=== PATIENT | female | born 1955 | race Caucasian/White ===

== ENCOUNTER 2016-12-04 06:12 | Inpatient (IN) ==
[2016-12-04] MEDS ORDERED: Lidocaine -MPF 1% 2 ML VIAL ID ONE (06:40)
[2016-12-04] MEDS ORDERED: Vancomycin 750 MG in D5% in Water 250 ML IVPB ONE (06:40)
[2016-12-04] MEDS ORDERED: CeFAZolin Pre 2,000 MG/100 ML 2,000 MG/100 ML BAG IVPB ONE (06:40)
[2016-12-04] MEDS ORDERED: Albuterol 2.5 MG/3 ML NEBULIZER IH ONE (06:42)
[2016-12-04] MEDS ORDERED: Ringers Solution, Lactated 1,000 ML IVC SCH (06:45)
[2016-12-04] MEDS ORDERED: *HR* Succinylcholine 200 MG/10 ML VIAL IVP ONE (06:58)
[2016-12-04] MEDS ORDERED: *HR* Propofol 200 MG/20 ML VIAL IVP ONE (06:58)
[2016-12-04] MEDS ORDERED: *HR* Midazolam HCl 2 MG/2 ML VIAL ONE (06:58)
[2016-12-04] MEDS ORDERED: Dexamethasone 4 MG/ML VIAL ONE (06:58)
[2016-12-04] MEDS ORDERED: *HR* FentaNYL (PF) 100 MCG/2 ML VIAL ONE (06:58)
[2016-12-04] MEDS ORDERED: *HR* Rocuronium Bromide 50 MG/5 ML VIAL ONE (06:58)
[2016-12-04] MEDS ORDERED: Lidocaine -MPF 2% 2 ML VIAL ONE (06:58)
[2016-12-04] MEDS ORDERED: *HR* Phenylephrine 10 MG/ML VIAL ONE (06:58)
[2016-12-04] MEDS ORDERED: Ondansetron 4 MG/2 ML VIAL ONE (06:58)
[2016-12-04] MEDS ORDERED: EPHEDrine 50 MG/ML VIAL ONE (06:58)
[2016-12-04] MEDS ORDERED: Lidocaine -MPF 4% 5 ML AMPUL ONE (06:58)
--- NOTE | 2016-12-04 07:01 | Anesthesia Evaluation PreOp ---
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: Denies Any Significant HX Other Medical History: Denies Any Significant HX Anesthesia History: No Prior Anesthetic Complications, Past Anesthesia (c/s) Alcohol Use: heavy Drug use: none Medications and Allergies Clopidogrel Bisulfate [Plavix] 75 mg PO DAILY #30 tablet 11/28/16 [Rx] Ibuprofen/Diphenhydramine Cit [Advil Pm Caplet] 1 each PO HS 11/28/16 [History] Losartan Potassium [Cozaar] 75 mg PO DAILY 11/28/16 [History] Pravastatin Sodium [Pravachol] 10 mg PO HS 11/28/16 [History] Tramadol HCl [Ultram] 50 mg PO TID PRN 11/28/16 [History] Allergies No Known Allergies Allergy (Verified 11/28/16 06:40) - Meds/Allergy Pre-op Review Medications Reviewed: Yes Allergies Reviewed: Yes Beta Blockers on Current Med List: No Anesthesia Results - Labs Laboratory Tests 11/27/16 11/27/16 11/28/16 08:38 08:38 06:56 Hgb 14.3 Hct 40.8 Plt Count 266 PT 11.8 INR 1.1 APTT 39.6 H Sodium 128 L Potassium 2.9 L Creatinine 0.70 - Imaging EKG: report reviewed (st, lad) Anesthesia Exam O2 Sat Height 1.63 m Height 1.63 m Height 1.63 m Weight 54.431 kg Weight 54.431 kg Weight 54.431 kg O2 Sat by Pulse Oximetry 97 Vital Signs Temp Pulse Resp BP Pulse Ox 97.6 F 102 18 139/77 97 12/04/16 06:38 12/04/16 06:38 12/04/16 06:38 12/04/16 06:38 12/04/16 06:38 Height: 1.63 Weight: 54 NPO (# of Hours): >8 - HEENT Pupil (Motor): Pupils equal, EOMI Mallampati: III Teeth: Poor dentition Oral Opening: Less than or equal to 3 (poor underbite) - NURSE ADVOCATE LOC: Oriented NURSE ADVOCATE Motor: Normal RUE, Normal LUE, Normal RLE, Normal LLE, Normal Face NURSE ADVOCATE Sensory: Normal: RUE, LUE, RLE, LLE, Face - Cardiac Rhythm: Regular Murmur: None - Pulmonary Breath Sounds: bilateral Clear (distant bilat) Anesthesia Assess/Plan ASA Score: 3 Modified Thurmond Scale for Level of Consciousness: Cooperative, oriented, and tranquil Anesthetic Plan: General (take SUSU in OR for anticipated diff AW) Monitoring Plan: Standard Monitors Recovery Plan: PACU
[2016-12-04] MEDS ORDERED: Heparin 1,000 UNITS/500 mL NS 0 ML ONE (07:07)
[2016-12-04] MEDS ORDERED: Heparin 1,000 UNITS/500 mL NS 500 ML ONE (07:16)
[2016-12-04] MEDS ORDERED: Vancomycin 1,000 MG VIAL ONE (07:16)
--- NOTE | 2016-12-04 07:30 | History & Physical Report ---
Date of Encounter: 12/04/16 Time of Encounter: 07:28 24 Hour HP Update - Instructions Instructions: If the History and Physical is less than 30 days old and was completed prior to A.M. admission and or procedure and has NOT been updated on calendar day of procedure please complete this update prior to performing procedure. - Update Patient reports changes in Medical Condition: No Changes in examination, assessment, or condition: No Changes in Medication: No Preop tests/diagnostics Reviewed: Yes Surgery Remains Indicated: Yes Consent for Planned Operative Procedure(s) Verified: Yes - Pre-Operative Checklist Preoperative Checklist Indicated: No Prophylactic Antibiotic Ordered: Yes (Vancomycin due to MRSA risk) Home Medications Include Beta Stu: No Beta Stu Taken Today (Day of Surgery): No Beta Stu Taken Yesterday (Day Prior to Surgery): No Is VTE Prophylaxis Indicated?: Yes
[2016-12-04] MEDS ORDERED: Lacri-Lube 3.5 GM TUBE ONE (08:32)
[2016-12-04] MEDS ORDERED: *HR* Heparin 5,000 UNIT/ML VIAL ONE ×2 (09:16→09:51)
[2016-12-04] MEDS ORDERED: *HR* HYDROmorphone (PF) 1 MG/ML SYRINGE IVP PRN (09:30)
[2016-12-04] MEDS ORDERED: *HR* Labetalol 20 MG/4 ML SYRINGE IVP PRN ×2 (09:30→11:51)
[2016-12-04] MEDS ORDERED: Ondansetron 4 MG/2 ML VIAL IVP ONE (09:30)
[2016-12-04] MEDS ORDERED: *HR* Promethazine 25 MG/ML VIAL IVP PRN (09:30)
[2016-12-04] MEDS ORDERED: *HR* HYDROmorphone 2 MG/ML SYRINGE ONE (10:10)
[2016-12-04] MEDS ORDERED: *HR* Metoprolol 5 MG/5 ML VIAL IVP ONE (10:11)
--- NOTE | 2016-12-04 11:00 | Operative Note ---
Date of procedure: 12/04/16 Pre-op diagnosis: Peripheral vascular disease with ulceration Post-op diagnosis: same Procedure: 1. Right femoral to above knee popliteal artery bypass with 6mm Dist[place]flo [place] PTFE graft. 2. Right common and deep femoral artery endarterectomy. 3. Right popliteal artery endarterectomy. Complications: None Anesthesia: JIMBO Surgeon: Cecilio Ellis Estimated blood loss (cc): 100 Specimen: Right lower extremity plaque, right groin lymph node Condition: stable Disposition: PACU Procedure in Detail: Indications: The patient is a 61 year old female who presented to clinic with peripheral vascular disease with ulceration. She underwent an angiogram was was found to have iliac disease, femoral disease and a right superficail femoral artery occlusion. She previously underwent iliac stent placement. She had persistent rest pain and ulcerations and is here today for revascularization. Procedure: The patient was identified in the preoperative area. The risks, benefits, and alternatives of the procedure were discussed. All questions were answered. The patient was taken to the operating room and placed in supine position on the operating room table. After the induction of general endotracheal anesthesia, he was cleaned and draped in normal sterile fashion. An oblique incision was made over the right groin sharply. Hemostasis was obtained with electrocautery. Through a process of blunt, sharp, and electrocautery dissection, the right femoral vessels were dissected circumferentially and surrounded with vessel loops. An incision was made on the right medial distal thigh sharply. Hemostasis was obtained with electrocautery. Through a process of blunt, sharp, and electrocautery dissection, the right above-knee popliteal artery was dissected proximally and distally and surrounded with vessel loops. A graft was tunneled between the popliteal and femoral incisions. The patient received 5000 units of heparin intravenously. Additional heparin was given throughout the case to maintain adequate anticoagulation. The popliteal vessels were occluded and a longitudinal arteriotomy was made in the popliteal artery. A partially occlusive plaque was excised from the popliteal artery with a dental freer. The distal end of the graft was then sutured in place with a running 6-0 Prolene , but not tied. Heparinized saline was infused into the lumen. Tension was applied to the femoral vessel loops. An arteriotomy was made in the common femoral artery and a nearly occlusive plaque was noted at the distal common femoral artery. This plaque extended into the superficial femoral artery which was chronically occluded and also obstructed the right deep femoral artery. Release of the deep femoral vessel loop revealed only minimal retrograde flow. Using a dental freer, an endarterectomy was performed on the distal common femoral artery and deep femoral artery. The plaque was excised and sent to pathology. After the endarterectomy significant improvement in retrograde flow from the deep femoral artery was noted. The proximal ed of the graft graft was cut to fit the defect. The graft was anastamosed with a running 6-0 Prolene. The vessels were flushed through the graft and heparin was infused into the lumen. The graft was clamped with an atraumatic clamp. Thrombin and gelfoam were used at the proximal anastamosis. The distal arterial anastomosis was completed and prior to completing the closure, the popliteal vessels were flushed and reoccluded. Heparinized saline was infused into the lumen. The anastamosis was tied and then flow was restored. Polyphasic signals were noted distal to the distal anastomosis as well as at the posterior tibial artery. Wounds were irrigated with antibiotic-containing saline. Thrombin and gelfoam were used to aid in hemostasis. Platelet rich and platelet poor plasma were infused into the wounds. Meticulous hemostasis was obtained throughout the wound with electrocautery. Wounds were reapproximated with layers of 2-0 and 3-0 Vicryl. Skin was reapproximated with 3-0 Monocryl. Sterile dressing was applied. The patient was extubated and taken to recovery room in stable condition.
--- NOTE | 2016-12-04 11:43 | Anesthesia Evaluation Post Op ---
Date of Encounter: 12/04/16 Time of Encounter: 11:40 - Vital Signs Vital Signs: Last Vital Signs Temp 97.0 F L 12/04/16 11:31 Pulse 71 12/04/16 11:31 Resp 18 12/04/16 11:31 BP 135/68 12/04/16 11:31 Pulse Ox 100 12/04/16 11:31 - Lungs Lungs: Clear Ascult./Percussion - Airway Airway: Non-obstructed - Cardiovascular Regular Rate - Mental Status Mental Status: Alert & Oriented, Answers Appropriately - Pain Pain Scale: 0 Pain Scale used: Numeric (1 - 10) - Nausea Vomiting Nausea Vomiting: Not Present - Hydration Hydration: Ice chips, Judge catheter - Discharge PostOp Status: Transfer Patient to floor Attestation: Patient alert and communicative. Meets criteria for floor transfer.
[2016-12-04] MEDS ORDERED: *HR* Morphine 2 MG/ML SYRINGE IVP PRN (11:51)
[2016-12-04] MEDS ORDERED: Naloxone 0.4 MG/ML INJ IVP PRN (11:51)
[2016-12-04] MEDS ORDERED: *HR* OxyCODONE Immed Rel 5 MG TABLET PO PRN (11:51)
[2016-12-04] MEDS ORDERED: Acetaminophen 325 MG TABLET PO PRN (11:51)
[2016-12-04] MEDS ORDERED: Ondansetron 4 MG/2 ML VIAL IVP PRN (11:51)
[2016-12-04] MEDS: *HR* HYDROcodone/Acet 5/325 mg TABLET PO PRN ×2 (12:07→17:57)
[2016-12-04] MEDS ORDERED: 0.9 % Sodium Chloride 1,000 ML IVC ONE (13:18)
[2016-12-04] MEDS: *HR* Metoprolol 5 MG/5 ML VIAL IVP SCH ×3 (13:20→23:45)
[2016-12-04] MEDS: 0.9 % Sodium Chloride 1,000 ML IVC SCH (16:33)
[2016-12-04 17:12] LABS: Basophils % 0.2 %; Eosinophils % 0.2 %; Hematocrit 27.5 % (35.3-44.9); Hemoglobin 9.5 g/dL (11.5-15.4); Immature Granulocytes % 0.8 % (0-4); Lymphocytes # 0.7 K/mcL (0.6-4.6); Lymphocytes % 6.1 %; Mean Corpuscular HGB Conc 34.5 g/dL (31.6-35.5); Mean Corpuscular Volume 95.5 fL (83.0-100.0); Mean Platelet Volume 9.8 fL (9.4-12.4); Monocytes # 0.3 K/mcL (0.0-1.3); Monocytes % 2.7 %; Neutrophils # 10.1 K/mcL (1.6-8.9); Platelet Count 392 K/mcL (140-400); Red Blood Count 2.88 M/mcL (3.82-4.97); Red Cell Distribution Width 11.9 % (11.5-14.5)
[2016-12-04 17:24] LABS: BUN/Creatinine Ratio 12 (6-26); Blood Urea Nitrogen 8 mg/dL (7-20); Carbon Dioxide 25 mEq/L (19-29); Chloride 96 mEq/L (98-109); Glucose 150 mg/dL (70-99); Osmolality,Calculated 269 (280-300); Potassium 4.1 mEq/L (3.5-4.5); Sodium 129 mEq/L (136-145); eGFR For African Americans > 60 (> 60); eGFR For Non-African Americans > 60 (> 60)
[2016-12-04] MEDS: ceFAZolin 2,000 MG in D5% in Water 100 ML IVPB SCH ×2 (17:52→23:43)
[2016-12-04] MEDS ORDERED: Magnesium Sulfate 2 GM in D5% in Water 100 ML IVPB ONE (18:23)
[2016-12-04] MEDS ORDERED: Vancomycin 1,000 MG in D5% in Water 250 ML IVPB ONE ×2 (18:30→19:15)
[2016-12-05] MEDS: *HR* Metoprolol 5 MG/5 ML VIAL IVP SCH (05:25)
[2016-12-05] MEDS ORDERED: *HR* Heparin 5,000 UNIT/ML VIAL SQ SCH ×2 (06:00)
[2016-12-05 06:04] LABS: Basophils % 0.1 %; Hematocrit 23.2 % (35.3-44.9); Hemoglobin 8.2 g/dL (11.5-15.4); Immature Granulocytes % 0.9 % (0-4); Lymphocytes # 1.3 K/mcL (0.6-4.6); Lymphocytes % 9.3 %; Mean Corpuscular HGB Conc 35.3 g/dL (31.6-35.5); Mean Corpuscular Hemoglobin 33.2 pg (28.0-33.3); Mean Corpuscular Volume 93.9 fL (83.0-100.0); Monocytes # 1.5 K/mcL (0.0-1.3); Monocytes % 10.8 %; Neutrophils # 10.7 K/mcL (1.6-8.9); Platelet Count 372 K/mcL (140-400); Red Blood Count 2.47 M/mcL (3.82-4.97); Red Cell Distribution Width 11.9 % (11.5-14.5); Segmented Neutrophils % 78.9 %
[2016-12-05 06:23] LABS: BUN/Creatinine Ratio 11 (6-26); Blood Urea Nitrogen 7 mg/dL (7-20); Calcium 8.1 mg/dL (8.6-10.8); Carbon Dioxide 26 mEq/L (19-29); Chloride 97 mEq/L (98-109); Glucose 101 mg/dL (70-99); Magnesium 1.5 mg/dL (1.6-2.6); Osmolality,Calculated 266 (280-300); Potassium 4.2 mEq/L (3.5-4.5); Sodium 129 mEq/L (136-145); eGFR For African Americans > 60 (> 60); eGFR For Non-African Americans > 60 (> 60)
[2016-12-05] MEDS ORDERED: Magnesium Sulfate 2 GM in D5% in Water 100 ML IVPB ONE (07:18)
[2016-12-05 07:26] VITALS: BP 133/71
--- NOTE | 2016-12-05 07:27 | Discharge Summary ---
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 (3) Mixed hyperlipidemia Priority: Secondary Status: Chronic (4) Tobacco abuse Priority: Secondary Status: Chronic Comments: She was counseled regarding smoking cessation. (5) Chronic anemia Priority: Secondary Status: Chronic Comments: The patient has chronic anemia with acute expected postoperative blood loss anemia. She has also received intravenous fluid hydration. She is hemodynamically stable without evidence of ongoing blood loss. (6) Hypomagnesemia Priority: Secondary Status: Chronic Comments: The patient has hypomagnesimia that was present on admission. She received intravenous magnesium. (7) Hyponatremia Priority: Secondary Status: Chronic Comments: The patient has chronic aysmptomatic hyponatremia likely secondary to her chronic alcohol abuse. (8) Alcohol abuse Priority: Secondary Status: Chronic Comments: The patient has chronic alcohol abuse. She had no signs of alcohol withdrawal. She was advised to avoid alcohol while taking narcotics for pain relief. - Discharge Medications Prescriptions: OxyCODONE/APAP 5/325 [Percocet 5/325 MG] 1 each PO Q4HR PRN #30 tablet PRN Reason: POSTOPERATIVE PAIN Aspirin Enteric Coated [Aspirin EC] 81 mg PO DAILY #90 tablet. Home Medications: Clopidogrel Bisulfate [Plavix] 75 mg PO DAILY #30 tablet 11/28/16 [Rx] Losartan Potassium [Cozaar] 50 mg PO DAILY 11/28/16 [History] Pravastatin Sodium [Pravachol] 10 mg PO HS 11/28/16 [History] Tramadol HCl [Ultram] 50 mg PO TID PRN 11/28/16 [History] Losartan [Cozaar] 25 mg PO DAILY 12/04/16 [History] Aspirin Enteric Coated [Aspirin EC] 81 mg PO DAILY #90 tablet. 12/05/16 [Rx] OxyCODONE/APAP 5/325 [Percocet 5/325 MG] 1 each PO Q4HR PRN #30 tablet 12/05/16 [Rx] Allergies/Adverse Reactions: Allergies No Known Allergies Allergy (Verified 12/04/16 07:52) Date of admission: 12/04/16 11:48 Primary care physician: Radha Interiano, Procedure(s) Performed: Right lower extremity endarterectomy, right femoral to popliteal artery bypass. Discharging clinician: Cecilio Ellis Anticipated date of discharge: 12/05/16 - Patient Status Disposition: Home, Self-Care Condition: Good Functional capacity at discharge: independent ambulation Overall status at discharge: patient is back to baseline - Discharge Instructions Instructions: How to Stop Smoking (DC), Femoropopliteal Bypass (DC) Follow Up With: Radha Interiano CNP [Primary Care Provider] - 12/11/16 1:00 pm Cecilio Ellis MD [Partnered Physician] - 12/31/16 11:00 am Additional Instructions: May remove bandage and shower on 12/06/16. Wash wounds gently and pat to dry. No tub baths or swimming until 12/26/16. Apply dry gauze to wounds daily for [address] Ellis at [phone] with questions or concerns. - Diet and Activity Activity: increase activity as tolerated Diet: low fat, low cholesterol - Hospital Course Hospital course: Ms. Duke is a 61 year old female with multiple medical comorbid conditions. She was admitted on 12/04/16. She underwent a right lower extremity endarterectomy and a right femoral to popliteal bypass for perupheral vascular disease with ulceration. On postoperative day #1 her foot and leg felt much better. Her incisions and her chronic ulcers were healing. She was discharged in stable condition without complication. - Time Spent with Patient Total time spent providing and/or coordinating discharge services: Exam Vital Signs, Last 4 Hours Temp Pulse Resp BP Pulse Ox 12/05/16 05:00 97.8 F 85 16 143/70 96 General: Present: Conversant, No Apparent Distress HEENT: Present: Atraumatic, Pupils equal Neck: Present: JVD Cardiac: Present: Reg Rate and Rhythm Lungs: Present: Normal Breath Sounds Neuro: Present: Alert and responsive, No focal deficits noted, Motor nerves grossly intact, Sensory nerves grossly intact Abdomen: Present: Soft, Non-tender. Absent: Masses Vascular: Present: Normal capillary refill, Surgical incisions (incisions clean , dry and intact without erythema or drainage, no hematoma). Absent: Cyanosis, Edema Skin: Present: Wound/ulcer(s) (right lower extremity ulcers healing, left ulcers stable without erythema or purulence) Musculoskeletal: Present: No Chest Wall Tenderness - VTE Documentation of Mechanical Device: Intermittent pneumatic compression device
[2016-12-05] MEDS ORDERED: Aspirin Enteric Coated 81 MG Tablet PO SCH (09:00)
[2016-12-05] MEDS: 0.9 % Sodium Chloride 1,000 ML IVC SCH (09:57)
== END 2016-12-05 10:52 | disposition home or self-care (01) | DRG 253 ==
LOC: SAMDAY 06:12 → 2NNU 11:48
PROVIDERS: ADMIT Surgery; ATTEND Surgery

== ENCOUNTER 2017-05-08 08:06 | Inpatient (IN) ==
--- NOTE | 2017-05-08 08:26 | Anesthesia Evaluation PreOp ---
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 Other Medical History: Denies Any Significant HX Anesthesia History: No Prior Anesthetic Complications, Past Anesthesia (csection , dimitry common iliac aa stent, R fem bypass with PTFE graft, R popliteal aa endarterectomy) Alcohol Use: heavy Drug use: none Medications and Allergies Clopidogrel Bisulfate [Plavix] 75 mg PO DAILY #30 tablet 11/28/16 [Rx] Losartan Potassium [Cozaar] 50 mg PO DAILY 11/28/16 [History] Pravastatin Sodium [Pravachol] 10 mg PO HS 11/28/16 [History] Tramadol HCl [Ultram] 50 mg PO TID PRN 11/28/16 [History] Losartan [Cozaar] 25 mg PO DAILY 12/04/16 [History] Aspirin Enteric Coated [Aspirin EC] 81 mg PO DAILY #90 tablet. 12/05/16 [Rx] OxyCODONE/APAP 5/325 [Percocet 5/325 MG] 1 each PO Q4HR PRN #30 tablet 12/05/16 [Rx] 3 Allergy/AdvReac Type Severity Reaction Status Date / Time No Known Allergies Allergy Verified 12/04/16 07:52 - Meds/Allergy Pre-op Review Medications Reviewed: Yes Allergies Reviewed: Yes Beta Blockers on Current Med List: No Anesthesia Results - Labs Laboratory Tests 05/07/17 05/07/17 05/07/17 08:22 08:22 08:22 WBC 5.9 Hgb 12.0 Hct 36.3 Plt Count 411 H PT 10.6 INR 1.0 APTT 43.5 H Sodium 128 L Potassium 4.3 Chloride 96 L Carbon Dioxide 23 BUN 5 L Creatinine 0.61 Glucose 87 - Imaging EKG: report reviewed (sinus tachycardia) Anesthesia Exam O2 Sat Height 1.63 m Weight 55.338 kg Height: 1.63m Weight: 55kg - HEENT Pupil (Motor): Pupils equal, EOMI Mallampati: III Teeth: Poor dentition, Prosthesis (upper incisor caps/crowns) Oral Opening: Greater than 3 - ELECTRIC METER REPAIRER LOC: Oriented 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
[2017-05-08] MEDS ORDERED: Lidocaine -MPF 4% 5 ML AMPUL ONE (08:31)
[2017-05-08] MEDS ORDERED: *HR* Rocuronium Bromide 50 MG/5 ML VIAL ONE (08:31)
[2017-05-08] MEDS ORDERED: Lidocaine -MPF 2% 2 ML VIAL ONE ×2 (08:31→09:16)
[2017-05-08] MEDS ORDERED: *HR* Succinylcholine 200 MG/10 ML VIAL IVP ONE (08:31)
[2017-05-08] MEDS ORDERED: *HR* Propofol 200 MG/20 ML VIAL IVP ONE (08:31)
[2017-05-08] MEDS ORDERED: Ondansetron 4 MG/2 ML VIAL ONE (08:31)
[2017-05-08] MEDS ORDERED: EPHEDrine 50 MG/ML VIAL ONE (08:31)
[2017-05-08] MEDS ORDERED: *HR* FentaNYL (PF) 100 MCG/2 ML VIAL ONE ×2 (08:31→09:57)
[2017-05-08] MEDS ORDERED: Dexamethasone 4 MG/ML VIAL ONE (08:31)
[2017-05-08] MEDS ORDERED: *HR* Midazolam HCl 2 MG/2 ML VIAL ONE (08:31)
--- NOTE | 2017-05-08 08:31 | History & Physical Report ---
Date of Encounter: 05/08/17 Time of Encounter: 08:25 24 Hour HP Update - Instructions Instructions: If the History and Physical is less than 30 days old and was completed prior to A.M. admission and or procedure and has NOT been updated on calendar day of procedure please complete this update prior to performing procedure. - Update Patient reports changes in Medical Condition: No Changes in examination, assessment, or condition: No Changes in Medication: No Preop tests/diagnostics Reviewed: Yes Surgery Remains Indicated: Yes Consent for Planned Operative Procedure(s) Verified: Yes - Pre-Operative Checklist Preoperative Checklist Indicated: Yes Prophylactic Antibiotic Ordered: Yes (Vancomycin due to MRSA) Home Medications Include Beta Stu: No Beta Stu Taken Today (Day of Surgery): No Beta Stu Taken Yesterday (Day Prior to Surgery): No Is VTE Prophylaxis Indicated?: Yes
[2017-05-08] MEDS ORDERED: Lidocaine -MPF 1% 2 ML VIAL ID ONE (08:35)
[2017-05-08] MEDS ORDERED: Albuterol 2.5 MG/3 ML NEBULIZER IH ONE (08:35)
[2017-05-08] MEDS ORDERED: Vancomycin 750 MG in D5% in Water 250 ML IVPB ONE ×2 (08:35→21:00)
[2017-05-08] MEDS ORDERED: *HR* FentaNYL (PF) 100 MCG/2 ML VIAL IVP PRN (08:40)
[2017-05-08] MEDS ORDERED: *HR* HYDROmorphone (PF) 1 MG/ML SYRINGE IVP PRN (08:40)
[2017-05-08] MEDS ORDERED: *HR* Promethazine 25 MG/ML VIAL IVP PRN (08:40)
[2017-05-08] MEDS ORDERED: Ondansetron 4 MG/2 ML VIAL IVP ONE (08:40)
[2017-05-08] MEDS ORDERED: *HR* Meperidine 25 MG/ML SYRINGE IVP PRN (08:40)
[2017-05-08] MEDS ORDERED: CeFAZolin Syr 2,000MG/20 ML 2,000 MG/20 ML SYRINGE IVPB ONE (08:41)
[2017-05-08] MEDS ORDERED: Ringers Solution, Lactated 1,000 ML IVC SCH ×2 (08:45)
[2017-05-08] MEDS ORDERED: Heparin 1,000 UNITS/500 mL NS 1,500 ML ONE (08:56)
[2017-05-08] MEDS ORDERED: Heparin 1,000 UNITS/500 mL NS 500 ML ONE (09:05)
[2017-05-08] MEDS ORDERED: *HR* Phenylephrine 10 MG/ML VIAL ONE ×2 (09:14→10:59)
[2017-05-08] MEDS ORDERED: *HR* Etomidate 40 MG/20 ML VIAL IVP ONE (09:56)
[2017-05-08] MEDS ORDERED: *HR* Heparin 5,000 UNIT/ML VIAL ONE ×2 (12:31→15:51)
[2017-05-08] MEDS ORDERED: Neostigmine Methylsulfate 3 MG/3 ML SYRINGE ONE (13:16)
--- NOTE | 2017-05-08 14:14 | Operative Note ---
Date of procedure: 05/08/17 Pre-op diagnosis: Peripheral vascular disease with ulceration Post-op diagnosis: same Procedure: 1. Left femoral to posterior tibial artery bypass with reversed left greater saphenous vein. Complications: None Anesthesia: LUISA Surgeon: Cecilio Ellis Estimated blood loss (cc): 100 Specimen: None Condition: stable Disposition: PACU Procedure in Detail: Indications: The patient is a 61 year old female with a history of hypertension , hyperlipidemia and tobacco abuse who presented to vascular clinic with severe disabling claudication, rest pain and ulceration in the left lower extremity. A CT angiogram revealed a right popliteal artery occlusion. Revascularization was recommended to reduce her risk of limb loss and alleviate her symptoms. Procedure: The patient was identified in the preoperative area. The risks, benefits, and alternatives of the procedure were discussed. All questions were answered. The patient was taken to the operating room and placed in supine position on the operating room table. After the induction of general endotracheal anesthesia, he was cleaned and draped in normal sterile fashion. A longitudinal incision was made on the left medial calf sharply. Hemostasis was obtained with electrocautery. Through a process of blunt, sharp, and electrocautery dissection, the left posterior tibial artery was dissected proximally and distally and surrounded with vessel loops. Dissection proceed proximally to the popliteal artery. A firm plaque could be palpated in the popliteal fossa, but the anatomy of the knee and high tibial trifurcation prevented adequate visualization for dissection. A longitudinal incision was made over the left distal thigh sharply. Hemostasis was obtained with electrocautery. Through a process of blunt, sharp , and electrocautery dissection, the distal left superficial femoral artery was dissected circumferentially and surrounded with vessel loops. Dissection proceed distally along the popliteal artery. Again, the plaque could be palpated, but the patients anatomy did not alow for addequate exposure of the heavily calcified lesion. The decision was then made to perform a bypass around the lesion. A skin incisino was made along the thigh along the saphenous vein. The saphenous vein was completely mobilized with blunt, sharp, and electrocautery dissection. The side branches were clamped, divided, tied off with 3-0 and 4-0 silk sutures. Distally, the vein was mobilized in the calf, clamped, divided, tied off with silk suture ligature and then further completely mobilized through the incisions. The vein was flushed and noted to be adequate in size and consistency for bypass. A tunnel was created between the femoral and popliteal artery incisions. The patient received a heparin bolus. The vein was then reversed. Tension was applied to the superficial femoral vessel loops. An arteriotomy was made in the distal superficial femoral artery and the vein graft was cut to fit the defect. The graft was anastamosed with a running 6-0 Prolene. After completing the closure, the vessels were reperfused and pulsatile flow was noted through the vein. The vein was marked without torsion and then it was tunneled between the two incisions. After tunneling, the vein was unclamped and was noted to have strong pulsatile flow once again. It was re-clamped. The posterior tibial artery was occluded with vessel loops and a longitudinal arteriotomy was made in the posterior tibial artery artery. The distal end of the graft was sutured in place with a running 6-0 Prolene. Prior to completing the closure, the posterior tibial artery was flushed and reoccluded. Heparinized saline was infused into the lumen. The anastamosis was tied and then flow was restored. Polyphasic signals were noted distal to the distal anastomosis as well as at the posterior tibial artery. Wounds were irrigated with antibiotic-containing saline. Thrombin and gelfoam were used to aid in hemostasis. Platelet rich and platelet poor plasma were infused into the wounds. Meticulous hemostasis was obtained throughout the wound with electrocautery. Wounds were reapproximated with layers of 2-0 and 3-0 Vicryl. Skin was reapproximated with 3-0 Monocryl. Sterile dressing was applied. The patient was extubated and taken to recovery room in stable condition.
--- NOTE | 2017-05-08 15:04 | Anesthesia Evaluation Post Op ---
Date of Encounter: 05/08/17 Time of Encounter: 15:03 - Vital Signs Vital Signs: Selected Entries 05/08/17 14:41 05/08/17 14:51 05/08/17 15:01 Temperature 97.5 F L Pulse Rate 92 Respiratory Rate 16 Blood Pressure 96/71 O2 Sat by Pulse Oximetry 95 - Lungs Lungs: Clear Ascult./Percussion - Airway Airway: Non-obstructed - Cardiovascular Regular Rate - Mental Status Mental Status: Alert & Oriented, Answers Appropriately - Pain Pain Scale: 0 Pain Scale used: Numeric (1 - 10) - Nausea Vomiting Nausea Vomiting: Not Present - Hydration Hydration: Ice chips, Judge catheter - Discharge PostOp Status: Transfer Patient to floor
[2017-05-08] MEDS ORDERED: Ondansetron 4 MG/2 ML VIAL IVP PRN (15:37)
[2017-05-08] MEDS ORDERED: Naloxone 0.4 MG/ML INJ IVP PRN (15:37)
[2017-05-08] MEDS ORDERED: *HR* Labetalol 20 MG/4 ML SYRINGE IVP PRN (15:37)
[2017-05-08] MEDS ORDERED: *HR* Morphine 2 MG/ML SYRINGE IVP PRN (15:37)
[2017-05-08] MEDS ORDERED: 0.9 % Sodium Chloride 1,000 ML IVC SCH (15:37)
[2017-05-08] MEDS ORDERED: Acetaminophen 325 MG TABLET PO PRN (15:37)
[2017-05-08] MEDS: *HR* OxyCODONE Immed Rel 5 MG TABLET PO PRN (16:01)
[2017-05-08] MEDS: *HR* HYDROcodone/Acet 5/325 mg TABLET PO PRN ×2 (16:57→23:01)
[2017-05-08] MEDS: *HR* Metoprolol 5 MG/5 ML VIAL IVP SCH (16:58)
[2017-05-08] MEDS: CeFAZolin Premix DUPLEX 2,000 MG/50 ML BAG IVPB SCH (17:07)
[2017-05-08] MEDS ORDERED: *HR* Heparin 5,000 UNIT/ML VIAL SQ SCH (18:00)
[2017-05-09] MEDS: CeFAZolin Premix DUPLEX 2,000 MG/50 ML BAG IVPB SCH (00:43)
[2017-05-09] MEDS: *HR* Metoprolol 5 MG/5 ML VIAL IVP SCH ×2 (00:49→05:27)
[2017-05-09] MEDS: *HR* OxyCODONE Immed Rel 5 MG TABLET PO PRN (02:45)
[2017-05-09 03:54] LABS: Basophils % 0.2 %; Eosinophils % 0.2 %; Hematocrit 22.2 % (35.3-44.9); Immature Granulocytes % 0.4 % (0-4); Lymphocytes # 0.9 K/mcL (0.6-4.6); Lymphocytes % 8.9 %; Mean Corpuscular HGB Conc 33.8 g/dL (31.6-35.5); Mean Corpuscular Volume 91.7 fL (83.0-100.0); Mean Platelet Volume 9.6 fL (9.4-12.4); Monocytes # 0.7 K/mcL (0.0-1.3); Monocytes % 7.1 %; Neutrophils # 8.6 K/mcL (1.6-8.9); Platelet Count 288 K/mcL (140-400); Red Blood Count 2.42 M/mcL (3.82-4.97); Red Cell Distribution Width 13.2 % (11.5-14.5); Segmented Neutrophils % 83.2 %
[2017-05-09 03:57] LABS: Hemoglobin 7.5 g/dL (11.5-15.4)
[2017-05-09 04:10] LABS: BUN/Creatinine Ratio 12 (6-26); Blood Urea Nitrogen 7 mg/dL (7-20); Calcium 8.2 mg/dL (8.6-10.8); Carbon Dioxide 22 mEq/L (19-29); Chloride 97 mEq/L (98-109); Glucose 99 mg/dL (70-99); Osmolality,Calculated 258 (280-300); Potassium 4.4 mEq/L (3.5-4.5); Sodium 125 mEq/L (136-145); eGFR For African Americans > 60 (> 60); eGFR For Non-African Americans > 60 (> 60)
[2017-05-09] MEDS ORDERED: *HR* Heparin 5,000 UNIT/ML VIAL SQ SCH (06:00)
--- NOTE | 2017-05-09 07:43 | Discharge Summary ---
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 Her incisions are healing. She has no hematoma. Her foot is warm. Her pedal signals are polyphasic. Her compartments are soft. She will be discharged today. (2) Atherosclerosis of [place] arteries of left leg with ulceration of ankle Priority: Secondary Status: Acute (3) Essential hypertension Priority: Secondary Status: Chronic (4) Mixed hyperlipidemia Priority: Secondary Status: Chronic (5) Tobacco abuse Priority: Secondary Status: Chronic (6) Chronic anemia Status: Chronic Comments: The patient has chronic anemia with acute expected blood loss anemia. She is hemodynamically stable without evidence of ongoing blood loss. She will receive 1 unit of PRBCs today. - Discharge Medications Prescriptions: OxyCODONE/APAP 5/325 [Percocet 5/325 MG] 1 each PO Q6HR PRN #25 tablet PRN Reason: POSTOPERATIVE PAIN Home Medications: Clopidogrel Bisulfate [Plavix] 75 mg PO DAILY #30 tablet 11/28/16 [Rx] Losartan Potassium [Cozaar] 50 mg PO DAILY 11/28/16 [History] Pravastatin Sodium [Pravachol] 10 mg PO HS 11/28/16 [History] Losartan [Cozaar] 25 mg PO DAILY 12/04/16 [History] Aspirin [Ecotrin] 325 mg PO DAILY 05/08/17 [History] Naproxen Sodium [Aleve] 220 mg PO Q12HR PRN 05/08/17 [History] hydrALAZINE [HydrALAZINE] 10 mg PO DAILY 05/08/17 [History] hydroCHLOROthiazide [Hydrochlorothiazide] 12.5 mg PO DAILY 05/08/17 [History] OxyCODONE/APAP 5/325 [Percocet 5/325 MG] 1 each PO Q6HR PRN #25 tablet 05/09/17 [Rx] Allergies/Adverse Reactions: 3 Allergy/AdvReac Type Severity Reaction Status Date / Time No Known Allergies Allergy Verified 05/08/17 09:21 Date of admission: 05/08/17 15:08 Primary care physician: PCP NONE Procedure(s) Performed: Left femoral to popliteal artery bypass with reversed sapjenous vein. Discharging clinician: Cecilio Ellis Anticipated date of discharge: 05/09/17 - Patient Status Disposition: Home, Self-Care Condition: Good Overall status at discharge: patient is back to baseline - Discharge Instructions Follow Up With: Radha Interiano CNP [Partnered Physician] - (SENT WEB REQUEST ON 05-08-17 @ 6145 ) Cecilio Ellis MD [Partnered Physician] - 06/05/17 1:20 pm Additional Instructions: May remove bandage and shower 05/10/17. Wash wound gently and pat to dry. Apply dry gauze to wound daily for 7 days. No tub baths or swimming until 05/28/17. Call Dr. Ellis at [phone] with questions or concerns. - Diet and Activity Activity: increase activity as tolerated Diet: advance to your usual diet - Hospital Course Hospital course: Ms. Duke is a 61 year old female Time spent discussing smoking cessation with patient: 3 to 10 minutes - Time Spent with Patient Total time spent providing and/or coordinating discharge services: Exam Vital Signs, Last 4 Hours Temp Pulse Resp BP Pulse Ox 05/09/17 04:17 98.0 F 83 16 101/52 99 General: Present: Conversant, No Apparent Distress HEENT: Present: Pupils equal Cardiac: Present: Reg Rate and Rhythm Lungs: Present: Normal Breath Sounds Neuro: Present: Alert and responsive, No focal deficits noted Abdomen: Present: Soft Vascular: Present: Normal capillary refill, Edema (expected left lower extremity edema after revascularization.), Surgical incisions (no hematoma). Absent: Cyanosis Skin: Present: No rashes noted on visualized skin, Wound/ulcer(s) (no erythema, serous drainage noted) - VTE Documentation of Mechanical Device: Intermittent pneumatic compression device
[2017-05-09] MEDS ORDERED: 0.9 % Sodium Chloride 250 ML ONE (08:10)
[2017-05-09] MEDS: *HR* HYDROcodone/Acet 5/325 mg TABLET PO PRN (08:12)
[2017-05-09] MEDS ORDERED: Aspirin Enteric Coated 325 MG Tablet PO SCH (09:00)
[2017-05-09] MEDS ORDERED: hydroCHLOROthiazide 25 MG TABLET PO SCH (09:00)
[2017-05-09] MEDS ORDERED: hydrALAZINE 10 MG TABLET PO SCH (09:00)
[2017-05-09 11:42] VITALS: BP 112/56
== END 2017-05-09 12:20 | disposition home or self-care (01) | DRG 253 ==
LOC: SAMDAY 08:06 → 2NNU 15:08
PROVIDERS: ADMIT Surgery; ATTEND Surgery